=== PATIENT | female | born 1945 | race Caucasian/White ===

== ENCOUNTER 2017-10-04 06:12 | Emergency (ER) | payer MEDICARE, MEDICAID ==
[~2017-10-04] VITALS: Ht 160 cm; Wt 96.6 kg
[~2017-10-04 06:12] MED LIST: ALLO300T PO; ASPI-650 PO; CHOL100014 PO; HYDR12.53 PO; LISI2.5T PO; PRAV10TA2 PO
[2017-10-04] MEDS ORDERED: ACETAMINOPHEN 500 MG TABLET ONE (06:44)
[2017-10-04] MEDS ORDERED: ACETAMINOPHEN 500 MG TABLET PO ONE (07:00)
[2017-10-04] MEDS ORDERED: SODIUM CHLORIDE FLUSH 10ML SYR IVF ONE (07:00)
[2017-10-04 07:19] LABS: BASOPHILS # (AUTO) 0.01 x10^3/uL (0-0.1); BASOPHILS % (AUTO) 0 % (0-1); EOSINOPHILS # (AUTO) 0.59 x10^3/uL (0-0.4); EOSINOPHILS % (AUTO) 13 % (1-7); LYMPHOCYTES # (AUTO) 0.78 x10^3/uL (1-3.4); LYMPHOCYTES % (AUTO) 17 % (22-44); MD NO; MEAN CORPUSCULAR HEMOGLOBIN 34.3 pg (27.0-34.8); MEAN CORPUSCULAR HGB CONC 34.7 g/dL (32.4-35.8); MEAN CORPUSCULAR VOLUME 98.6 fL (80-100); MEAN PLATELET VOLUME 9.4 fL (7.4-10.4); MONOCYTES # (AUTO) 0.21 x10^3/uL (0.2-0.8); MONOCYTES % (AUTO) 5 % (2-9); NEUTROPHILS # (AUTO) 2.95 x10^3/uL (1.8-6.8); NEUTROPHILS % (AUTO) 65 % (42-75); PLATELET COUNT 108 x10^3/uL (130-400); RED CELL DISTRIBUTION WIDTH 14.2 % (9.6-15.2)
[2017-10-04 07:31] LABS: ALANINE AMINOTRANSFERASE 26 U/L (12-78); ALBUMIN 3.7 g/dL (3.4-5.0); ANION GAP 11 mmol/L (5-15); CALCIUM 8.6 mg/dL (8.5-10.1); CHLORIDE 100 mmol/L (98-107); CREATININE 1.07 mg/dL (0.55-1.02)
[2017-10-04 07:33] LABS: MICROSCOPIC AUTO
[2017-10-04 07:33] LABS: ALKALINE PHOSPHATASE 72 U/L (45-117); BILIRUBIN,TOTAL 0.4 mg/dL (0.2-1.0); TOTAL PROTEIN 7.1 g/dL (6.4-8.2)
[2017-10-04 07:36] LABS: CULTURE INDICATED? NO
[2017-10-04 08:06] VITALS: BP 113/58
== END 2017-10-04 08:34 | disposition home or self-care (01) ==
LOC: ED 07:48
DX: B00.1 Herpesviral vesicular dermatitis (principal); N28.9 Disorder of kidney and ureter, unspecified; R53.1 Weakness; E78.5 Hyperlipidemia, unspecified; I10 Essential (primary) hypertension
CPT/HCPCS: 36415; 71045; 80053; 81001; 83605; 84145; 85025; 87040; 93005; 99285

== ENCOUNTER 2018-09-16 09:54 | Emergency (ER) | payer MEDICARE, MEDICAID ==
[~2018-09-16] VITALS: Ht 160 cm; Wt 92.0 kg
[~2018-09-16 09:54] MED LIST changes: +HYDR12.517 PO; -HYDR12.53 PO
[2018-09-16 09:55] VITALS: BP 165/84
--- NOTE | 2018-09-16 10:12 | NUR ---
C/O RT SHOULDER PAIN. STATES SHE'S BEEN GOING TO PT IN AUGUST. HX: RT KNEE REPLACEMENT 2 YRS AGO, RT ROTATOR CUFF REPAIR, RT SHOULDER DISLOCATION ("YEARS AGO"), RT HANDEDNESS. NO PAIN MEDS TAKEN TODAY. C/O PAIN W/ FORWARD & BACKWARD MOVEMENT OF SHOULDER.
[2018-09-16] MEDS ORDERED: ASPI-496 PO (10:18)
[2018-09-16] MEDS ORDERED: HYDR12.575 PO (10:18)
[2018-09-16] MEDS ORDERED: PRAV40TA2 PO (10:18)
[2018-09-16] MEDS ORDERED: LISI-167 PO (10:18)
[2018-09-16] MEDS ORDERED: KETO15CR17 TP (10:20)
== END 2018-09-16 10:59 | disposition home or self-care (01) ==
LOC: ED 10:57
DX: S23.3XXA Sprain of ligaments of thoracic spine, initial encounter (principal); I10 Essential (primary) hypertension; E78.5 Hyperlipidemia, unspecified; Z87.891 Personal history of nicotine dependence; X58.XXXA Exposure to other specified factors, initial encounter; Y93.89 Activity, other specified; Y92.89 Other specified places as the place of occurrence of the external cause; Y99.8 Other external cause status
CPT/HCPCS: 99283

== ENCOUNTER 2020-01-23 20:42 | Emergency (ER) | payer MEDICARE, MEDICAID ==
[~2020-01-23] VITALS: Ht 157.5 cm; Wt 84.0 kg
[~2020-01-23 20:42] MED LIST changes: +ASPI-496 PO; +HYDR12.575 PO; +KETO15CR17 TP; +LISI-167 PO; +PRAV40TA2 PO
[2020-01-23 21:00] VITALS: BP 153/60
[2020-01-23] MEDS ORDERED: HYDROcodone/APAP 5/325 TABLET ONE (23:25)
[2020-01-23] MEDS ORDERED: HYDROcodone/APAP 5/325 TABLET PO ONE (23:30)
== END 2020-01-24 00:09 | disposition home or self-care (01) ==
LOC: ED 23:28
DX: M54.41 Lumbago with sciatica, right side (principal); M54.16 Radiculopathy, lumbar region; I10 Essential (primary) hypertension; E78.5 Hyperlipidemia, unspecified; M10.9 Gout, unspecified; Z90.89 Acquired absence of other organs; Z87.891 Personal history of nicotine dependence
CPT/HCPCS: 72110; 99283

== ENCOUNTER 2020-03-26 09:43 | Emergency (ER) | payer MEDICARE, MEDICAID ==
[~2020-03-26] VITALS: Ht 160 cm; Wt 97.2 kg
--- NOTE | 2020-03-26 10:15 | NUR ---
PT S/P RIGHT TOTAL SHOULDER 03/20, PRESENTS WITH LEFT LEG "IT'S SWOLLEN AND FEELS NUMB" DISTAL CSM+. ER PA LILIYA AT BEDSIDE, PT ASSESSMENT AND POC DISCUSSED AND QUESTIONS ANSWERED. CALL LIGHT W/I REACH, WARM BLANKET AND PILLOW FOR COMFORT VSS, NAD NOTED. DAUGHTER AT BEDSIDE.
--- NOTE | 2020-03-26 10:30 | NUR ---
RIGHT SHOULDER SURGICAL INCISION CLEANED WITH DERMAL WOUND ACCESS SPEC, [place] DRESSING PLACED, CAVILON SKIN PROTECTOR APPLIED AND DRESSING SECURED WITH PAPER TAPE. INSTRUCTION TO PT AND HER DAUGHTER. ADDITIONAL DRESSING SUPPLIES SENT WITH PT, INCLUDING CAVILON AND DERMAL WOUND ACCESS SPEC
[2020-03-26 11:02] VITALS: BP 129/59
--- NOTE | 2020-03-26 11:03 | NUR ---
PT OOB TO [facility], VOIDED W/O DIFFICULTY AND RTD TO [facility] W/O INCIDENT. US RESULTS PENDING, PT AWARE. CALL LIGHT W/I REACH, VSS.
--- NOTE | 2020-03-26 11:40 | NUR ---
ALL TESTS RESULTED, CHART UP FOR RECHECK
--- NOTE | 2020-03-26 11:54 | NUR ---
Patient/Caregiver given discharge instructions and they have confirmed that they understand the instructions. Patient ambulatory with steady gait.
== END 2020-03-26 11:55 | disposition home or self-care (01) ==
LOC: ED 10:07
DX: R60.0 Localized edema (principal); M79.662 Pain in left lower leg; I10 Essential (primary) hypertension; Z87.891 Personal history of nicotine dependence
CPT/HCPCS: 93005; 93970; 99284

== ENCOUNTER 2020-03-27 05:58 | Emergency (ER) | payer MEDICARE, MEDICAID ==
[~2020-03-27] VITALS: Ht 160 cm; Wt 87.0 kg
[2020-03-27 06:00] VITALS: BP 128/70
--- NOTE | 2020-03-27 06:54 | NUR ---
REPORT GIVEN TO JESUS ALONZO
== END 2020-03-27 08:03 | disposition home or self-care (01) ==
LOC: ED 06:27
DX: R60.0 Localized edema (principal); M25.511 Pain in right shoulder; I10 Essential (primary) hypertension; Z90.89 Acquired absence of other organs
CPT/HCPCS: 99284

== ENCOUNTER 2020-05-02 11:54 | Emergency (ER) | payer MEDICARE, MEDICAID ==
[~2020-05-02] VITALS: Ht 160 cm; Wt 82.8 kg
[~2020-05-02 11:54] MED LIST changes: +ASPI-1026 PO; -ASPI-650 PO
--- NOTE | 2020-05-02 12:19 | NUR ---
pt is a 74f complaining of right inguinal/flank pain and right sided back pain since 04/25. shoulder reconstruction last month and she is actively in PT. spo2 and bp monitor applied. call light within reach. NADN. pillow and blankets offered.
--- NOTE | 2020-05-02 12:34 | NUR ---
ER INDER BARRETO AT BEDSIDE, PT ASSESSMENT REV. AND POC DISCUSSED.
--- NOTE | 2020-05-02 12:53 | NUR ---
PT TO RADIOLOGY WITH TECH TRANSPORT.
[2020-05-02] MEDS ORDERED: METHOCARBAMOL 750 MG TABLET ONE (12:54)
--- NOTE | 2020-05-02 13:05 | NUR ---
Pt back from xray, lab at bedside. Call light within reach.
--- NOTE | 2020-05-02 13:11 | NUR ---
PT COMPLAINING OF 8/10 PAIN, MEDICATED PER EMAR. MONITORS IN PLACE, CALL LIGHT WITHING REACH. NO FURTHER NEEDS AT THIS TIME.
[2020-05-02 13:24] LABS: BASOPHILS % (AUTO) 1 % (0-1); EOSINOPHILS % (AUTO) 1 % (1-7); LYMPHOCYTES % (AUTO) 29 % (22-44); MEAN CORPUSCULAR HEMOGLOBIN 32.4 pg (27.0-34.8); MEAN CORPUSCULAR HGB CONC 33.7 g/dL (32.4-35.8); MEAN PLATELET VOLUME 8.9 fL (7.4-10.4); MONOCYTES % (AUTO) 8 % (2-9); NEUTROPHILS % (AUTO) 62 % (42-75); PLATELET COUNT 206 x10^3/uL (130-400); RED BLOOD COUNT 3.44 x10^6/uL (3.82-5.3); RED CELL DISTRIBUTION WIDTH 13.6 % (9.6-15.2)
[2020-05-02 13:27] LABS: ALBUMIN 3.5 g/dL (3.4-5.0); ANION GAP 8 mmol/L (5-15); CALCIUM 9.2 mg/dL (8.5-10.1); CHLORIDE 108 mmol/L (98-107)
[2020-05-02 13:28] LABS: MD NO
[2020-05-02] MEDS ORDERED: METHOCARBAMOL 750 MG TABLET PO ONE (13:30)
[2020-05-02 13:33] LABS: ALANINE AMINOTRANSFERASE 13 U/L (12-78); ALKALINE PHOSPHATASE 89 U/L (45-117); BILIRUBIN,TOTAL 0.5 mg/dL (0.2-1.0); CREATININE 1.12 mg/dL (0.55-1.02); TOTAL PROTEIN 7.8 g/dL (6.4-8.2)
[2020-05-02] MEDS ORDERED: POTASSIUM CHLORIDE 20 MEQ TAB.ER.PRT ONE (14:21)
[2020-05-02 14:27] VITALS: BP 123/52
[2020-05-02] MEDS ORDERED: POTASSIUM CHLORIDE 20 MEQ TAB.ER.PRT PO ONE (14:30)
[2020-05-02 14:39] LABS: MICROSCOPIC AUTO
== END 2020-05-02 14:44 | disposition home or self-care (01) ==
LOC: ED 12:28
DX: S39.012A Strain of muscle, fascia and tendon of lower back, initial encounter (principal); R10.9 Unspecified abdominal pain; E87.6 Hypokalemia; I10 Essential (primary) hypertension; M10.9 Gout, unspecified; E78.5 Hyperlipidemia, unspecified; Z90.89 Acquired absence of other organs; Z87.891 Personal history of nicotine dependence; X58.XXXA Exposure to other specified factors, initial encounter; Y93.89 Activity, other specified; Y92.89 Other specified places as the place of occurrence of the external cause; Y99.8 Other external cause status
CPT/HCPCS: 36415; 74022; 80053; 81001; 85025; 87086; 99284

== ENCOUNTER 2020-09-16 08:40 | Emergency (ER) | payer MEDICARE, MEDICAID ==
[~2020-09-16] VITALS: Ht 162.6 cm; Wt 82.1 kg
--- NOTE | 2020-09-16 08:57 | NUR ---
RN and PA assessments completed. Call light in reach and warm blanket provided. Tissues provided for tearful affect secondary to pain in LLE.
[2020-09-16] MEDS ORDERED: KETOROLAC 30 MG/1 ML IM ONE (09:00)
--- NOTE | 2020-09-16 09:06 | NUR ---
Pt to radiology at this time with rose grading supervisor.
[2020-09-16] MEDS ORDERED: KETOROLAC 30 MG/1 ML ONE (09:19)
--- NOTE | 2020-09-16 09:26 | NUR ---
Pt back from radiology. IM and PO meds given as ordered. IM injection given with aseptic technique and tolerated with c/o burning with medication that resolved quickly.
[2020-09-16 10:37] VITALS: BP 144/80
== END 2020-09-16 10:56 | disposition home or self-care (01) ==
LOC: ED 10:45
DX: M54.42 Lumbago with sciatica, left side (principal); I10 Essential (primary) hypertension; E87.6 Hypokalemia; E78.5 Hyperlipidemia, unspecified
CPT/HCPCS: 72110; 96372; 99283; J1885; J7512